=== PATIENT | female | born 1970 | race Asian ===

== ENCOUNTER 2016-09-05 02:18 | Inpatient (IN) | payer OTHER ==
[~2016-09-05] VITALS: Ht 165.1 cm; Wt 62.0 kg
[2016-09-05 03:31] LABS: RED CELL DISTRIBUTION WIDTH 12.8 % (11.5-14.5)
[2016-09-05 03:44] LABS: microscopic required? YES; urine erythrocyte 2+ (NEGATIVE)
[2016-09-05 03:48] LABS: PLATELET COUNT 459 x10^3mcL (130-400)
[2016-09-05 04:00] LABS: CALCIUM 9.3 mg/dL (8.5-10.1); CARBON DIOXIDE 27.7 mmol/L (21-32); CHLORIDE SERUM 88 mmol/L (98-107); CREATININE SERUM 0.9 mg/dL (0.6-1.0); GFR1 > 60 mL/min; GLUCOSE SERUM 331 mg/dL (74-106); POTASSIUM SERUM 3.2 mmol/L (3.5-5.1); SODIUM SERUM 129 mmol/L (136-145)
[2016-09-05 04:10] LABS: ALBUMIN 3.9 g/dL (3.4-5.0); ALKALINE PHOSPHATASE 118 U/L (46-116); ALT/SGPT 15 U/L (14-59); AST/SGOT 10 U/L (15-37); BILIRUBIN TOTAL 1.4 mg/dL (0.20-1.00); C REACTIVE PROTEIN 4.4 mg/dL (<=0.9)
[2016-09-05 04:13] LABS: FREE T4 1.42 ng/dL (0.76-1.46); T4(THYROXINE) 11.9 ug/dL (4.7-13.3); TOTAL PROTEIN, SERUM 9.4 g/dL (6.4-8.2)
[2016-09-05 04:15] LABS: CK-MB 0.6 ng/mL (0-3.6)
[2016-09-05 04:20] LABS: BAND NEUTROPHIL 2 % (0-10); METAMYELOCTE 1 % (0-2); MONOCYTE 6 % (0-7); SEGMENTED NEUTROPHILS 83 % (37-75)
[2016-09-05 04:21] LABS: PLATELET MORPHOLOGY FEW LARGE PLATELETS; rbc morphology (normal/abnorm) NORMAL (NORMAL)
[2016-09-05 04:35] LABS: ERYTHROCYTE SED RATE 36 mm/hr (0-20)
[2016-09-05 04:37] LABS: T3 TOTAL 1.19 ng/mL
[2016-09-05] MEDS ORDERED: FORTAMET500 M1 PO (05:01)
[2016-09-05 05:30] VITALS: BP 158/92
[2016-09-05 05:32] LABS: AMPHETAMINE QUAL UR POSITIVE (NEG <=1000)
[2016-09-05 05:34] VITALS: BP 158/92
[2016-09-05 05:45] LABS: MAGNESIUM 1.6 mg/dL (1.8-2.4)
[2016-09-05 05:48] LABS: CHOLESTEROL/HDL RATIO 3.2
[2016-09-05 10:11] VITALS: BP 144/84
[2016-09-05 14:30] VITALS: BP 111/71
[2016-09-05 17:27] VITALS: BP 98/70
[2016-09-05 21:57] VITALS: BP 101/67
[2016-09-06 06:01] LABS: BASOPHIL % 0.1 % (0-2); PLATELET COUNT 334 x10^3mcL (130-400); RED CELL DISTRIBUTION WIDTH 12.8 % (11.5-14.5)
[2016-09-06 06:08] VITALS: BP 100/63
[2016-09-06 06:16] LABS: CALCIUM 7.3 mg/dL (8.5-10.1); CARBON DIOXIDE 28.3 mmol/L (21-32); CHLORIDE SERUM 104 mmol/L (98-107); CREATININE SERUM 0.7 mg/dL (0.6-1.0); GFR1 > 60 mL/min; GLUCOSE SERUM 186 mg/dL (74-106); MAGNESIUM 1.9 mg/dL (1.8-2.4); PHOSPHOROUS 1.9 mg/dL (2.5-4.9); POTASSIUM SERUM 3.1 mmol/L (3.5-5.1); SODIUM SERUM 138 mmol/L (136-145)
[2016-09-06 10:40] VITALS: BP 108/63
[2016-09-06 17:39] VITALS: BP 105/68; BP 109/72
[2016-09-06 21:46] VITALS: BP 112/71
[2016-09-07 06:14] VITALS: BP 125/68
[2016-09-07 06:43] LABS: BASOPHIL % 0.5 % (0-2); PLATELET COUNT 342 x10^3mcL (130-400); RED CELL DISTRIBUTION WIDTH 13.3 % (11.5-14.5)
[2016-09-07 07:19] LABS: CALCIUM 7.4 mg/dL (8.5-10.1); CARBON DIOXIDE 26.8 mmol/L (21-32); CHLORIDE SERUM 102 mmol/L (98-107); CREATININE SERUM 0.6 mg/dL (0.6-1.0); GFR1 > 60 mL/min; GLUCOSE SERUM 200 mg/dL (74-106); MAGNESIUM 1.5 mg/dL (1.8-2.4); SODIUM SERUM 137 mmol/L (136-145)
[2016-09-07 07:22] LABS: POTASSIUM SERUM 2.8 mmol/L (3.5-5.1)
[2016-09-07 09:36] VITALS: BP 124/77
[2016-09-07] MEDS ORDERED: COLACE100 MG PO (10:18)
[2016-09-07] MEDS ORDERED: METFORMIN HCL850 MG PO (10:18)
[2016-09-07] MEDS ORDERED: ACETAMINOPHEN-H1 TAB PO (10:19)
[2016-09-07] MEDS ORDERED: GAS RELIEF 8080 MG PO (10:20)
[2016-09-07] MEDS ORDERED: FLA500 PO (11:32)
[2016-09-07] MEDS ORDERED: LEVAQUIN750 MG PO (11:33)
[2016-09-07 12:20] VITALS: BP 124/77
[2016-09-07] MEDS ORDERED: LAC PO (12:31)
[2016-09-07 14:43] LABS: CARBON DIOXIDE 29.8 mmol/L (21-32); CHLORIDE SERUM 101 mmol/L (98-107); CREATININE SERUM 0.8 mg/dL (0.6-1.0); GFR1 > 60 mL/min; GLUCOSE SERUM 298 mg/dL (74-106); POTASSIUM SERUM 3.8 mmol/L (3.5-5.1); SODIUM SERUM 134 mmol/L (136-145)
== END 2016-09-07 17:09 | disposition home or self-care (01) | DRG 263 ==
LOC: ED 02:18 → DU 04:09 → MU 04:09 → DU 05:02 → MU 19:00
PROVIDERS: Specialist; Surgery; ADMIT Family Medicine
PROC: 0FT44ZZ Resection of Gallbladder, Percutaneous Endoscopic Approach (ICD-10-PCS; principal; 2016-09-05 11:00)
DX: K80.00 Calculus of gallbladder with acute cholecystitis without obstruction (principal); N17.0 Acute kidney failure with tubular necrosis; E11.65 Type 2 diabetes mellitus with hyperglycemia; E11.51 Type 2 diabetes mellitus with diabetic peripheral angiopathy without gangrene; D68.69 Other thrombophilia; E87.1 Hypo-osmolality and hyponatremia; E87.8 Other disorders of electrolyte and fluid balance, not elsewhere classified; E87.6 Hypokalemia; E83.42 Hypomagnesemia; D47.3 Essential (hemorrhagic) thrombocythemia; E83.39 Other disorders of phosphorus metabolism; Z79.84 Long term (current) use of oral hypoglycemic drugs
CPT/HCPCS: 82962; 83880; 84439; 94150; J0330; J1815; J1885; J2001; J2175; J2250; J2405; J2543; J2704; J2710; J3010; J3475; J3480; J3490; J7030; Q0092; Q9967